=== PATIENT | female | born 1955 ===

== ENCOUNTER 2018-11-22 09:15 | Outpatient (CLI) | payer OTHER ==
[~2018-11-22] VITALS: Ht 160 cm; Wt 72.6 kg
== END 2018-11-22 09:30 | disposition home or self-care (01) ==
LOC: OFIC 805 09:15
DX: R09.81 Nasal congestion (principal); J32.8 Other chronic sinusitis

== ENCOUNTER 2018-12-31 11:23 | Outpatient (CLI) | payer OTHER ==
[~2018-12-31] VITALS: Ht 152.4 cm; Wt 72.6 kg
== END 2018-12-31 11:40 | disposition home or self-care (01) ==
LOC: OFIC 805 11:23
DX: R09.81 Nasal congestion (principal); J32.8 Other chronic sinusitis

== ENCOUNTER 2019-02-04 10:59 | Outpatient (CLI) | payer OTHER ==
[~2019-02-04] VITALS: Ht 152.4 cm; Wt 72.6 kg
== END 2019-02-04 11:15 | disposition home or self-care (01) ==
LOC: OFIC 805 10:59
DX: J32.8 Other chronic sinusitis (principal); R09.81 Nasal congestion; J30.89 Other allergic rhinitis